=== PATIENT | male | born 1950 | race Caucasian/White ===

== ENCOUNTER 2019-01-04 07:59 | Emergency (ER) | payer MEDICARE, BC ==
[2019-01-04] MEDS ORDERED: Hydrocodone/Acetamin 10/325 1 TAB PO ONE (09:06)
[2019-01-04] MEDS ORDERED: HYDROcodone/ACETAMIN 5-325 MG* 1 TAB PO ONE (09:47)
[2019-01-04 11:15] VITALS: BP 129/88
--- NOTE | 2019-01-04 11:40 | ED ---
Upper Extremity Pain - HPI Summary HPI Summary: Patient is a 68-year-old male presenting to the ED with right shoulder pain. He states the shoulders been worsening over time, however recently over the past 4 days has not been able to abduct His shoulder and feels better with the area internally rotated. He denies any numbness or tingling. He denies any color temperature changes. He states he has chronic neck problems, however denies any pain to the shoulders bilaterally in the past. - History of Current Complaint Chief Complaint: EDExtremityUpper Stated Complaint: SHOULDER PAIN Time Seen by Provider: 01/04/19 08:20 Hx Obtained From: Patient Onset/Duration: Started Hours Ago Timing: Constant Severity Initially: Moderate Severity Currently: Moderate Pain Location: Shoulder Character: Aching Alleviating Factor(s): Rest, Ice Associated Signs & Symptoms: Positive: Negative. Negative: Swelling, Redness, Bruising, Weakness, Numbness/Tingling Related History: Dominant Hand Right - Risk Factors Non-Orthopedic Risk Factor: Negative DVT Risk Factors: Negative Septic Arthritis Risk Factor: Negative - Allergies/Home Medications Allergies/Adverse Reactions: Allergies Allergy/AdvReac Type Severity Reaction Status Date / Time dexamethasone Allergy GI Upset Verified 01/04/19 08:12 Penicillins Allergy GI Upset Verified 01/04/19 08:12 tobramycin [From TobraDex] Allergy GI Upset Verified 01/04/19 08:12 Home Medications: Home Medications Ibuprofen TAB* [Advil TAB*] 400 - 600 mg PO DAILY PRN 01/04/19 [History Confirmed 01/04/19] PMH/Surg Hx/FS Hx/Imm Hx Previously Healthy: Yes Endocrine/Hematology History: Denies: Hx Diabetes, Hx Anemia Cardiovascular History: Reports: Hx Hypercholesterolemia Denies: Hx Hypertension, Hx Pacemaker/ICD Respiratory History: Denies: Hx Asthma GI History: Denies: Hx Jaundice Musculoskeletal History: Reports: Other Musculoskeletal History - "cervical bone spurs" Sensory History: Denies: Hx Hearing Aid Psychiatric History: Reports: Hx Depression Denies: Hx Panic Disorder - Cancer History Cancer Type, 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 GALLBLADDER. TUMOR REMOVED FROM BLADDER. PROSTATECTOMY - Immunization History Hx Pertussis Vaccination: No Immunizations Up to Date: Yes Infectious Disease History: No Infectious Disease History: Denies: Traveled Outside the [place] in Last 30 Days - Family History Known Family History: Positive: None - Social History Occupation: Employed Full-time Lives: With Family Alcohol Use: Rare Hx Substance Use: No Substance Use Type: Reports: None Hx Tobacco Use: Yes Smoking Status (MU): Former Smoker Type: Cigarettes Have You Smoked in the Last Year: No Review of Systems Constitutional: Negative Negative: Fever, Chills, Fatigue, Skin Diaphoresis Negative: Palpitations, Chest Pain Negative: Shortness Of Breath, Cough Gastrointestinal: Negative Negative: Abdominal Pain, Vomiting, Diarrhea Genitourinary: Negative Positive: no symptoms reported, see HPI Positive: Arthralgia, Myalgia Skin: Negative All Other Systems Reviewed And Are Negative: Yes Physical Exam Triage Information Reviewed: Yes Vital Signs On Initial Exam: Initial Vitals Temp Pulse Resp BP Pulse Ox 99.1 F 100 19 132/97 95 01/04/19 08:07 01/04/19 08:07 01/04/19 08:07 01/04/19 08:07 01/04/19 08:07 Vital Signs Reviewed: Yes Appearance: Positive: Well-Appearing, Well-Nourished Skin: Positive: Warm, Skin Color Reflects Adequate Perfusion Head/Face: Positive: Normal Head/Face Inspection Eyes: Positive: EOMI, BEL, Conjunctiva Clear Neck: Positive: Supple, No Lymphadenopathy Respiratory/Lung Sounds: Positive: Clear to Auscultation Cardiovascular: Positive: RRR, Pulses are Symmetrical in both Upper and Lower Extremities Musculoskeletal: Positive: Pain @ - right shoulder pain/injury Neurological: Positive: Sensory/Motor Intact, Alert, Oriented to Person Place, Time, Speech Normal Psychiatric: Positive: Normal, Affect/Mood Appropriate Diagnostics - Vital Signs Vital Signs Temp Pulse Resp BP Pulse Ox 01/04/19 11:15 98.7 F 93 17 129/88 95 01/04/19 08:07 99.1 F 100 19 132/97 95 - Laboratory Lab Statement: Any lab studies that have been ordered have been reviewed, and results considered in the medical decision making process. Course/Dx - Course Course Of Treatment: X-rays obtained of the right shoulder. Calcific tendinitis. On physical examination, patient is unable to abduct the shoulder. There is pain on palpation. Worsening pain with attempting at external rotation. Discussed treatment options with patient. As he has been overusing the shoulder at work, this is likely an overuse injury versus rotator cuff injury. He will follow-up with orthopedics. Pain control is given. - Diagnoses Differential Diagnosis/HQI/PQRI: Positive: Fracture (Open), Fracture (Closed), Strain, Sprain Provider Diagnoses: Shoulder pain Discharge - Sign-Out/Discharge Documenting (check all that apply): Patient Departure Patient Received Moderate/Deep Sedation with Procedure: No - Discharge Plan Condition: Stable Disposition: HOME Prescriptions: oxyCODONE/Acetamin 10/325(NF) [Percocet 10/325 (NF)] 1 tab PO Q6H #20 tab MDD 4 Patient Education Materials: Rotator Cuff Injury (ED), Rotator Cuff Tendinitis (ED) Referrals: Tereso Belle MD [Primary Care Provider] - Cedric Granger MD [Medical Doctor] - Additional Instructions: Ibuprofen 600 mg 3-4 times daily Use the pain control as needed up to 4 times daily Heat to the area with gentle motion and movement exercises Pendulum exercises may help Please follow-up with orthopedics - Billing Disposition and Condition Condition: STABLE Disposition: Home
== END 2019-01-04 11:15 | disposition home or self-care (01) ==
LOC: ED 07:59
DX: M25.511 Pain in right shoulder (principal); Z88.0 Allergy status to penicillin; E78.00 Pure hypercholesterolemia, unspecified; F32.9 Major depressive disorder, single episode, unspecified; Z87.891 Personal history of nicotine dependence
CPT/HCPCS: 99282